=== PATIENT | female | born 1940 | race Caucasian/White ===

== ENCOUNTER → 2016-12-20 | Outpatient (CLI) | payer OTHER ==
[~2016-12-20] MED LIST: ACET-1175 PO; ALBU0.08 INH; ASPCH81X PO; BISA-16 PO; CHOL100027 PO; CRAN1TAB6 PO; FENT75DI2 TD; FURO40TA3 PO; HMLI SC; INSDGIPEN SC; LAMO200T PO; LEVO75TA PO; LISI-729 PO; MCRK20 PO; METO-551 PO; NITR0.4S UT; NYST1POW7; ONDA4TAB54; POLY335040 PO; PRAS1TAB6 PO; PRLSR20 PO; RANO1000 PO
--- NOTE | 2016-12-20 14:39 | DIAGNOSTIC IMAGING REPORT ---
CT LUMBAR SPINE WITHOUT CT DOSE: 2185.42 mGy.cm CLINICAL HISTORY: M48.06 Lumbar canal [id number] TECHNIQUE: Helical images were acquired in transverse plane. Reformatted sagittal and coronal images were reviewed. CONTRAST: No contrast was administered COMPARISON STUDY: None. FINDINGS: There are multiple right renal calculi, including a 32 mm staghorn calculus. Atheromatous changes are visualized at the celiac origin. There is a superior mesenteric artery origin stent. L1-2 level: There is marked disc degeneration and endplate irregularity. There is a circumferential disc bulge with anterior posterior osteophytes. There is mild to moderate spinal stenosis. L2-3 level: There are advanced degenerative changes with discogenic endplate sclerosis and a vacuum disc. There is a circumferential disc bulge. There is facet joint arthropathy. There is severe spinal stenosis. L3-4 level: There is L3-4 fusion. There is a circumferential disc bulge. There is moderate to severe spinal stenosis. L4-5 level: There is marked degeneration of the disc. There is a circumferential disc bulge. There is facet joint arthropathy. There is severe spinal stenosis. L5-S1 level: There is no evidence of significant disc bulge or focal herniation. There is no evidence of spinal or foraminal stenosis. IMPRESSION: 1. Staghorn right renal calculus 2. No acute fractures or traumatic subluxations. 3. Mild S shaped scoliosis 4. Advanced multilevel spondylitic changes with mild to moderate spinal stenosis at the L1-2 level, severe spinal stenosis the L2-3 level, moderate to severe spinal stenosis the L3-4 level, and severe spinal stenosis at the L4-5 level. Electronically signed by: Waldemar Reid M.D. 12/20/2016 2:38 PM Dictated Date/Time: 12/20/2016 2:33 PM
== END | disposition home or self-care (01) ==
LOC: C.CTS 14:17
PROVIDERS: ATTEND Psychiatry & Neurology Neurology
DX: M48.06 Spinal stenosis, lumbar region (principal); M41.9 Scoliosis, unspecified

== ENCOUNTER → 2017-02-02 | Outpatient (CLI) | payer OTHER ==
[2017-02-03 06:58] LABS: ESTIMATED AVERAGE GLUCOSE 151 mg/dl; HA1C FLAG Normal (Normal)
--- NOTE | 2017-02-09 10:42 | CODING QUERY MEDICAL NECESSITY ---
SUPPORTING DIAGNOSIS NEEDED A supporting diagnosis is required for the test/procedure performed on this patient in order for us to be reimbursed by the patient's insurance. Please provide a supporting diagnosis for the following test/procedure listed below next to the test name along with your signature. *If there is no additional diagnosis for this patient that would support the following test/procedure please document that below next to the test/procedure. Test(s)/Procedure(s) that require a supporting diagnosis: * VITAMIN D, 25-HYDROXY DIAGNOSIS: Provider Signature: Date: Thank you Jacqui Montague [employer] Information [employer] Once completed, please kindly fax back to [phone] For questions please call [phone]
== END | disposition home or self-care (01) ==
LOC: C.LAB1850 15:58
PROVIDERS: ATTEND Internal Medicine Endocrinology, Diabetes & Metabolism
DX: N20.0 Calculus of kidney (principal); E66.01 Morbid (severe) obesity due to excess calories; M79.669 Pain in unspecified lower leg; E11.9 Type 2 diabetes mellitus without complications

== ENCOUNTER → 2017-06-06 | Outpatient (CLI) | payer OTHER ==
--- NOTE | 2017-06-06 13:33 | DIAGNOSTIC IMAGING REPORT ---
RENAL ULTRASOUND CLINICAL HISTORY: Urinary tract infection. Urinary urgency. COMPARISON STUDY: CT of the abdomen and pelvis November 29, 2015. TECHNIQUE: Sonography of the kidneys and the urinary bladder was performed. FINDINGS: This exam is significantly compromised by suboptimal penetration related to body habitus. The right kidney measures 11.5 x 4.9 x 5.2 cm and the left measures 11.6 x 7.4 x 5.7 cm. The right lower pole renal lesion shown on CT of November 29, 2015 is not visualized on this exam, likely due to suboptimal penetration. Multiple large right renal staghorn type calculi are noted. A renal pelvis calculus may be present. However, there is no hydronephrosis. Bladder is suboptimally assessed on this exam and is underdistended. Neither ureteral jet was identified. IMPRESSION: 1. No hydronephrosis. 2. Extensive right-sided nephrolithiasis with staghorn type calculi. 3. Study significantly compromised by suboptimal penetration. Nonvisualization of the right renal lesion shown on prior CT. Electronically signed by: Omer Rosenbaum M.D. 06/06/2017 1:32 PM Dictated Date/Time: 06/06/2017 1:25 PM
== END | disposition home or self-care (01) ==
LOC: C.ULTR 12:38
PROVIDERS: ATTEND Urology
DX: N20.0 Calculus of kidney (principal); R39.15 Urgency of urination; N39.0 Urinary tract infection, site not specified; N39.41 Urge incontinence